=== PATIENT | male | born 1970 | race Caucasian/White ===

== ENCOUNTER 2019-04-26 16:16 | Emergency (ER) | payer MEDICAID ==
[~2019-04-26] VITALS: Ht 188 cm; Wt 72.1 kg
[2019-04-26] MEDS ORDERED: GLIP5TAB13 PO (16:37)
--- NOTE | 2019-04-26 17:05 | NUR ---
Dinner tray provided, pt ate w/ great appetite.
[2019-04-26] MEDS ORDERED: glipiZIDE 5 MG TABLET PO ONE (17:15)
[2019-04-26] MEDS ORDERED: glipiZIDE 5 MG TABLET PO SCH (17:15)
--- NOTE | 2019-04-26 17:41 | NUR ---
Patient given written and verbal discharge instructions. Patient verbalizes understanding of instructions. Patient is ambulatory with steady gait. Refuses offer of jail placement. Patient given list of available shelters in surrounding area.
== END 2019-04-26 17:42 | disposition home or self-care (01) ==
LOC: ER 16:16
DX: E11.9 Type 2 diabetes mellitus without complications (principal); Z88.5 Allergy status to narcotic agent; Z59.0 Homelessness; Z79.84 Long term (current) use of oral hypoglycemic drugs
CPT/HCPCS: A4663

== ENCOUNTER 2019-04-28 13:31 | Emergency (ER) | payer MEDICAID ==
[~2019-04-28] VITALS: Ht 177.8 cm; Wt 72.6 kg
[~2019-04-28 13:31] MED LIST: GLIP5TAB13 PO
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
[2019-04-28] MEDS ORDERED: ONDANSETRON 4 MG/2 ML VIAL IV ONE (13:45)
[2019-04-28] MEDS ORDERED: IV NORMAL SALINE 1000 ML BAG IV ONE (13:45)
[2019-04-28] MEDS ORDERED: ONDANSETRON 4 MG/2 ML VIAL ONE (13:50)
[2019-04-28 14:05] LABS: BASOPHILS # (AUTO) 0.1 K/uL (0.0-8.0); BASOPHILS % (AUTO) 0.9 % (0.0-2.0); EOSINOPHILS # (AUTO) 0.2 K/uL (0.0-0.7); EOSINOPHILS % (AUTO) 3.1 % (0.0-7.0); HEMATOCRIT 39.7 % (36.7-47.1); HEMOGLOBIN 13.3 g/dL (12.5-16.3); LYMPHOCYTES # (AUTO) 1.6 K/uL (20.0-40.0); LYMPHOCYTES % (AUTO) 25.7 % (20.5-51.5); MEAN CORPUSCULAR HEMOGLOBIN 30.1 uug (23.8-33.4); MEAN CORPUSCULAR HGB CONC 34 g/dL (32.5-36.3); MONOCYTES # (AUTO) 0.6 K/uL (2.0-10.0); MONOCYTES % (AUTO) 9.5 % (0.0-11.0); NEUTROPHILS # (AUTO) 3.8 K/uL (1.8-8.9); NEUTROPHILS % (AUTO) 60.8 % (38.5-71.5); PLATELET COUNT (AUTO) 191 K/uL (152-348); RED BLOOD CELL COUNT(AUTO) 4.42 MIL/uL (4.06-5.63); WHITE BLOOD COUNT (AUTO) 6.2 K/uL (3.6-10.2)
--- NOTE | 2019-04-28 14:08 | NUR ---
Patient is resting comfortably in bed with eyes closed, NAD noted.
[2019-04-28 14:09] LABS: CREATININE 1.2 mg/dL (0.6-1.3); POTASSIUM 4.4 mmol/L (3.5-5.1)
[2019-04-28 14:15] LABS: BILIRUBIN,DIRECT 0.1 mg/dL (0.0-0.2); BILIRUBIN,TOTAL 0.3 mg/dL (0.2-1.0)
--- NOTE | 2019-04-28 15:02 | NUR ---
Patient given written and verbal discharge instructions. Patient verbalizes understanding of instructions. Patient is ambulatory with steady gait. Refuses offer of [facility] placement. Patient given list of available shelters in surrounding area. Pt left ER w/ steady gait.
== END 2019-04-28 15:05 | disposition home or self-care (01) ==
LOC: ER 13:31
DX: E11.65 Type 2 diabetes mellitus with hyperglycemia (principal); Z88.5 Allergy status to narcotic agent; Z59.0 Homelessness; Z79.84 Long term (current) use of oral hypoglycemic drugs
CPT/HCPCS: 36415; 80048; 80076; 82962; 83690; 85025; 96361; 96374; 99283; J2405; A4663

== ENCOUNTER 2020-07-27 19:58 | Emergency (ER) | payer MEDICAID, OTHER ==
[~2020-07-27] VITALS: Ht 172.7 cm; Wt 74.8 kg
[2020-07-27 20:59] LABS: *BILIRUBIN,URIN NEGATIVE (NEGATIVE); *COLOR,URINE YELLOW (YELLOW); *KETONES,URINE NEGATIVE (NEGATIVE); *UROBILINOGEN,URINE 0.2 E.U./dl (NORMAL); LEUKOCYTE ESTERASE ,URINE TRACE (NEGATIVE); NITRITE, URINE NEGATIVE (NEGATIVE); PH,URINE 5.5 (5.0-8.0)
[2020-07-27 21:02] LABS: *BLOOD, URINE TRACE (NEGATIVE)
[2020-07-27 21:05] LABS: UGLUCOSE 2+ (NEGATIVE)
[2020-07-27 21:09] LABS: *CLARITY,URINE HAZY (CLEAR)
[2020-07-27 21:10] LABS: BACTERIA,URINE FEW /HPF (NONE SEEN); SQUAMOUS EPITHELIAL CELL,UR FEW /HPF (NONE SEEN); WBC,URINE 20-50 /HPF (0-3)
[2020-07-27] MEDS ORDERED: CEFTRIAXONE 1 G VIAL IM ONE (22:15)
[2020-07-27] MEDS ORDERED: CEFTRIAXONE 1 G VIAL ONE (22:24)
[2020-07-27] MEDS ORDERED: LIDOCAINE HCL 1% 20 ML VIAL ONE (22:24)
[2020-07-27] MEDS ORDERED: IV NORMAL SALINE 1000 ML BAG IV ONE (22:30)
[2020-07-27 22:39] LABS: BASOPHILS # (AUTO) 0.1 K/uL (0.0-8.0); BASOPHILS % (AUTO) 0.7 % (0.0-2.0); EOSINOPHILS # (AUTO) 0.4 K/uL (0.0-0.7); EOSINOPHILS % (AUTO) 3.6 % (0.0-7.0); HEMOGLOBIN 14.6 g/dL (12.5-16.3); LYMPHOCYTES % (AUTO) 18.4 % (20.5-51.5); MEAN CORPUSCULAR HEMOGLOBIN 30.4 uug (23.8-33.4); MEAN CORPUSCULAR HGB CONC 34 g/dL (32.5-36.3); MEAN CORPUSCULAR VOLUME 89.2 fL (73.0-96.2); MONOCYTES # (AUTO) 0.7 K/uL (2.0-10.0); MONOCYTES % (AUTO) 6.6 % (0.0-11.0); NEUTROPHILS # (AUTO) 7.8 K/uL (1.8-8.9); NEUTROPHILS % (AUTO) 70.7 % (38.5-71.5); PLATELET COUNT (AUTO) 246 K/uL (152-348); RED BLOOD CELL COUNT(AUTO) 4.82 MIL/uL (4.06-5.63)
[2020-07-27 22:53] LABS: ALANINE AMINOTRANSFERASE 26 U/L (16-63); ALKALINE PHOSPHATASE 92 U/L (50-136); ASPARTATE AMINOTRANSFERASE 11 U/L (15-37); BILIRUBIN,TOTAL 0.3 mg/dL (0.2-1.0); CARBON DIOXIDE 30 mmol/L (21-32); CHLORIDE 104 mmol/L (98-107); CREATININE 1.1 mg/dL (0.6-1.3); TOTAL PROTEIN, SERUM 7.4 g/dL (6.4-8.2); UREA NITROGEN, BLOOD 10 mg/dL (7-18)
[2020-07-27 22:59] LABS: GLUCOSE 359 mg/dL (74-106)
[2020-07-27] MEDS ORDERED: INSULIN REGULAR, HUMAN 300 UNIT/3 ML VIAL ONE (23:12)
[2020-07-27] MEDS ORDERED: FLUCONAZOLE 100 MG TABLET PO ONE (23:15)
[2020-07-27] MEDS ORDERED: INSULIN REGULAR, HUMAN 300 UNIT/3 ML VIAL IV ONE (23:15)
[2020-07-27] MEDS ORDERED: FLUCONAZOLE 100 MG TABLET ONE (23:18)
--- NOTE | 2020-07-28 00:16 | NUR ---
IV removed. Catheter intact and site benign. Pressure and 4x4 gauze applied to site. No bleeding noted.
--- NOTE | 2020-07-28 00:17 | NUR ---
Patient given written and verbal discharge instructions. Patient verbalizes understanding of instructions. Patient is ambulatory with steady gait. Refuses offer of nursing home placement. Patient given list of available shelters in surrounding area. Patient given sandwich & water.
[2020-07-28 00:19] VITALS: BP 136/88
== END 2020-07-28 00:20 | disposition home or self-care (01) ==
LOC: ER 19:59
DX: R30.0 Dysuria (principal); N30.91 Cystitis, unspecified with hematuria; E11.65 Type 2 diabetes mellitus with hyperglycemia; N48.1 Balanitis; Z59.0 Homelessness; Z79.84 Long term (current) use of oral hypoglycemic drugs; Z88.5 Allergy status to narcotic agent
CPT/HCPCS: 36415; 80053; 81001; 82009; 82962 ×2; 85025; 87077; 87086; 87186; 96361; 96372; 96374; 99284; J0696; J1815; J3490; A4663

== ENCOUNTER 2020-07-28 20:17 | Emergency (ER) | payer OTHER ==
[~2020-07-28] VITALS: Ht 172.7 cm; Wt 89.8 kg
[2020-07-28] MEDS ORDERED: IV NORMAL SALINE 1000 ML BAG IV ONE (20:45)
[2020-07-28] MEDS ORDERED: ACETAMINOPHEN ES 500 MG TABLET PO ONE (20:45)
[2020-07-28 21:20] LABS: BASOPHILS # (AUTO) 0.1 K/uL (0.0-8.0); BASOPHILS % (AUTO) 0.7 % (0.0-2.0); EOSINOPHILS # (AUTO) 0.3 K/uL (0.0-0.7); EOSINOPHILS % (AUTO) 2.6 % (0.0-7.0); HEMATOCRIT 41.8 % (36.7-47.1); HEMOGLOBIN 14.4 g/dL (12.5-16.3); LYMPHOCYTES # (AUTO) 1.2 K/uL (20.0-40.0); LYMPHOCYTES % (AUTO) 11.2 % (20.5-51.5); MEAN CORPUSCULAR HEMOGLOBIN 30.6 uug (23.8-33.4); MEAN CORPUSCULAR HGB CONC 34 g/dL (32.5-36.3); MONOCYTES # (AUTO) 0.7 K/uL (2.0-10.0); MONOCYTES % (AUTO) 6.4 % (0.0-11.0); NEUTROPHILS # (AUTO) 8.8 K/uL (1.8-8.9); NEUTROPHILS % (AUTO) 79.1 % (38.5-71.5); PLATELET COUNT (AUTO) 229 K/uL (152-348); WHITE BLOOD COUNT (AUTO) 11.1 K/uL (3.6-10.2)
[2020-07-28] MEDS ORDERED: ACETAMINOPHEN ES 500 MG TABLET ONE (21:21)
[2020-07-28 21:29] LABS: CREATININE 1.1 mg/dL (0.6-1.3); POTASSIUM 4.1 mmol/L (3.5-5.1)
[2020-07-28 21:41] LABS: BILIRUBIN,DIRECT 0.1 mg/dL (0.0-0.2); BILIRUBIN,TOTAL 0.5 mg/dL (0.2-1.0); TOTAL PROTEIN, SERUM 7.4 g/dL (6.4-8.2)
[2020-07-28] MEDS ORDERED: glyBURIDE 5 MG TABLET PO SCH (21:45)
[2020-07-29] MEDS ORDERED: ASPIRIN 325 MG TABLET PO ONE
[2020-07-29] MEDS ORDERED: ASPIRIN 325 MG TABLET ONE (00:48)
--- NOTE | 2020-07-29 00:57 | NUR ---
Patient given written and verbal discharge instructions. Patient verbalizes understanding of instructions. Patient is ambulatory with steady gait. Refuses offer of senior care placement. Patient given list of available shelters in surrounding area. Patient ambulated with stable gait.
[2020-07-29] MEDS ORDERED: AZITHROMYCIN 250 MG TABLET PO ONE (01:00)
[2020-07-29] MEDS ORDERED: AZITHROMYCIN 250 MG TABLET ONE (01:02)
[2020-07-29 01:04] VITALS: BP 120/75
== END 2020-07-29 01:05 | disposition home or self-care (01) ==
LOC: ER 20:20
DX: R07.9 Chest pain, unspecified (principal); J40 Bronchitis, not specified as acute or chronic; Z20.828 Contact with and (suspected) exposure to other viral communicable diseases; R00.0 Tachycardia, unspecified; E11.65 Type 2 diabetes mellitus with hyperglycemia; Z79.84 Long term (current) use of oral hypoglycemic drugs; Z59.0 Homelessness
CPT/HCPCS: 36415; 70030-TC; 71045; 85025; 93005; A4663; A9150; J7030; Q0144

== ENCOUNTER 2021-01-22 08:44 | Emergency (ER) | payer OTHER ==
[~2021-01-22] VITALS: Ht 172.7 cm; Wt 73.0 kg
[2021-01-22] MEDS ORDERED: GLIP5TAB13 PO ×2 (08:57→10:41)
[2021-01-22] MEDS ORDERED: INSULIN REGULAR, HUMAN 300 UNIT/3 ML VIAL IV ONE (09:15)
[2021-01-22] MEDS ORDERED: IV NORMAL SALINE 1000 ML BAG IV ONE (09:15)
--- NOTE | 2021-01-22 09:15 | NUR ---
Pt down to radiology for Abd Xray.
[2021-01-22] MEDS ORDERED: INSULIN REGULAR, HUMAN 300 UNIT/3 ML VIAL ONE (09:17)
[2021-01-22 09:18] LABS: BASOPHILS # (AUTO) 0.1 K/uL (0.0-8.0); BASOPHILS % (AUTO) 1.2 % (0.0-2.0); EOSINOPHILS # (AUTO) 0.1 K/uL (0.0-0.7); EOSINOPHILS % (AUTO) 2.4 % (0.0-7.0); HEMATOCRIT 44.5 % (36.7-47.1); HEMOGLOBIN 15.1 g/dL (12.5-16.3); LYMPHOCYTES # (AUTO) 1.2 K/uL (20.0-40.0); LYMPHOCYTES % (AUTO) 19.3 % (20.5-51.5); MEAN CORPUSCULAR HEMOGLOBIN 30.3 uug (23.8-33.4); MEAN CORPUSCULAR HGB CONC 34 g/dL (32.5-36.3); MEAN CORPUSCULAR VOLUME 89.5 fL (73.0-96.2); MONOCYTES # (AUTO) 0.3 K/uL (2.0-10.0); MONOCYTES % (AUTO) 5.6 % (0.0-11.0); NEUTROPHILS # (AUTO) 4.4 K/uL (1.8-8.9); NEUTROPHILS % (AUTO) 71.5 % (38.5-71.5); PLATELET COUNT (AUTO) 192 K/uL (152-348); RED BLOOD CELL COUNT(AUTO) 4.98 MIL/uL (4.06-5.63)
[2021-01-22 09:19] LABS: *BILIRUBIN,URIN NEGATIVE (NEGATIVE); *BLOOD, URINE NEGATIVE (NEGATIVE); *CLARITY,URINE CLEAR (CLEAR); *COLOR,URINE YELLOW (YELLOW); *KETONES,URINE NEGATIVE (NEGATIVE); *UROBILINOGEN,URINE 0.2 E.U./dl (NORMAL); LEUKOCYTE ESTERASE ,URINE NEGATIVE (NEGATIVE); NITRITE, URINE NEGATIVE (NEGATIVE)
[2021-01-22 09:34] LABS: BILIRUBIN,DIRECT 0.1 mg/dL (0.0-0.2); BILIRUBIN,TOTAL 0.4 mg/dL (0.2-1.0); CREATININE 1.1 mg/dL (0.6-1.3); POTASSIUM 4.2 mmol/L (3.5-5.1); TOTAL PROTEIN, SERUM 6.9 g/dL (6.4-8.2)
[2021-01-22 09:35] LABS: UGLUCOSE 3+ (NEGATIVE)
--- NOTE | 2021-01-22 09:35 | NUR ---
Pt back from Radiology, stable condition.
[2021-01-22 09:39] LABS: WHITE BLOOD COUNT (AUTO) 6.2 K/uL (3.6-10.2)
[2021-01-22 09:44] LABS: BACTERIA,URINE FEW /HPF (NONE SEEN); MUCUS,URINE NONE SEEN /LPF (0-FEW)
[2021-01-22 09:47] LABS: YEAST,URINE FEW /HPF (NONE SEEN)
[2021-01-22 09:50] LABS: RBC,URINE NONE SEEN /HPF (0-3); SQUAMOUS EPITHELIAL CELL,UR MODERATE /HPF (NONE SEEN)
--- NOTE | 2021-01-22 10:04 | NUR ---
1 L NS bolus done, blood sugar finger stick re-check: 200. Dr Triplett notified.
[2021-01-22] MEDS ORDERED: NEOMY/BACITRA/POLYMYXIN B OINT UD PACKET TP ONE ×2 (10:45→10:53)
--- NOTE | 2021-01-22 11:33 | NUR ---
BS: 160 after fingerstick re-check. Patient given written and verbal discharge instructions. Patient verbalizes understanding of instructions. Refuses offer of senior living placement. Patient given list of available shelters in surrounding area. Food provided. Ambulatory, left in stable condition.
[2021-01-22 11:36] VITALS: BP 114/75
== END 2021-01-22 11:55 | disposition home or self-care (01) ==
LOC: ER 08:44
DX: N48.1 Balanitis (principal); E11.65 Type 2 diabetes mellitus with hyperglycemia; Z79.84 Long term (current) use of oral hypoglycemic drugs; Z59.0 Homelessness; Z91.14 Patient's other noncompliance with medication regimen
CPT/HCPCS: 36415; 74021; 80048; 80076; 81001; 82009; 82962 ×3; 83690; 84484; 85025; 87077; 87086; 87186; 93005; 96361; 96374; 99285; J1815; 70030-TC; A4663

== ENCOUNTER 2022-03-23 09:41 | Emergency (ER) | payer OTHER ==
[~2022-03-23] VITALS: Ht 182.9 cm; Wt 54.4 kg
[2022-03-23] MEDS ORDERED: ACETAMINOPHEN 650 MG/20.3 ML LIQUID UDC PO ONE (10:00)
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
[2022-03-23] MEDS ORDERED: ACETAMINOPHEN 650 MG/20.3 ML LIQUID UDC ONE ×2 (10:28→10:29)
--- NOTE | 2022-03-23 10:35 | NUR ---
Cleaned wound w/saline, applied large band-aid. Gave pt d/c instructions, pt verbalized understanding.
== END 2022-03-23 10:42 | disposition home or self-care (01) ==
LOC: ER 09:41
DX: S06.0X1A Concussion with loss of consciousness of 30 minutes or less, initial encounter (principal); R40.2362 Coma scale, best motor response, obeys commands, at arrival to emergency department; R40.2142 Coma scale, eyes open, spontaneous, at arrival to emergency department; R40.2252 Coma scale, best verbal response, oriented, at arrival to emergency department; W22.8XXA Striking against or struck by other objects, initial encounter; Y92.89 Other specified places as the place of occurrence of the external cause; Z59.00 Homelessness unspecified; E11.9 Type 2 diabetes mellitus without complications; Z79.84 Long term (current) use of oral hypoglycemic drugs; Z88.5 Allergy status to narcotic agent
CPT/HCPCS: 70450; A4663

== ENCOUNTER 2022-08-17 07:27 | Emergency (ER) | payer OTHER ==
[~2022-08-17] VITALS: Ht 172.7 cm; Wt 79.4 kg
--- NOTE | 2022-08-17 08:06 | NUR ---
at bedside for evaluation.
[2022-08-17] MEDS ORDERED: KETOROLAC TROMETHAMINE 30 MG INJ IM ONE (08:15)
[2022-08-17] MEDS ORDERED: KETOROLAC TROMETHAMINE 30 MG INJ ONE (08:18)
[2022-08-17] MEDS ORDERED: IBUP-1953 PO (09:03)
[2022-08-17] MEDS ORDERED: GLIP5TAB13 PO (09:03)
--- NOTE | 2022-08-17 09:15 | NUR ---
Patient discharged to home in stable condition. Written and verbal after care instructions given. Patient verbalizes understanding of instructions. Stressed follow up or return to ER for worsening s/s.
[2022-08-17 09:16] VITALS: BP 135/72
== END 2022-08-17 09:15 | disposition home or self-care (01) ==
LOC: ER 07:27
DX: R51.9 Headache, unspecified (principal); F17.210 Nicotine dependence, cigarettes, uncomplicated; Z59.00 Homelessness unspecified; F20.9 Schizophrenia, unspecified; E11.9 Type 2 diabetes mellitus without complications; Z79.84 Long term (current) use of oral hypoglycemic drugs; Z88.5 Allergy status to narcotic agent
CPT/HCPCS: 99283; 96372; J1885; A4663

== ENCOUNTER 2022-08-17 18:49 | Emergency (ER) | payer OTHER ==
[~2022-08-17 18:49] MED LIST changes: +IBUP-1953 PO
--- NOTE | 2022-08-17 19:49 | NUR ---
Pt not in waiting room.
== END 2022-08-17 19:50 | disposition left against medical advice (07) ==
LOC: ER 18:59
DX: Z53.21 Procedure and treatment not carried out due to patient leaving prior to being seen by health care provider (principal)